=== PATIENT | female | born 1990 | race African-American/Black ===

== ENCOUNTER 2017-01-13 07:33 | Emergency (ER) | payer OTHER ==
[2017-01-13 07:39] VITALS: BP 124/89
[2017-01-13] MEDS ORDERED: DEXAMETHASONE 10 MG/ML VIAL PO STA (07:48)
[2017-01-13] MEDS ORDERED: DEXAMETHASONE 10 MG/ML VIAL ONE (07:50)
[2017-01-13] MEDS ORDERED: CHERRY SYRUP 10 ML UDC PO ONE (07:50)
--- NOTE | 2017-01-13 07:52 | ED Physician Documentation ---
PD HPI HEENT - Stated complaint Stated Complaint: FACE SWOLLEN/FEVER - Chief complaint Chief Complaint: General - History obtained from History obtained from: Patient, Family - History of Present Illness Timing - onset: How many weeks ago (1) Timing - duration: Weeks (1) Timing - details: Abrupt onset, Still present Location: Sinuses, Nose, Throat Improves: Medication Associated symptoms: Congestion, Rhinorrhea, Facial swelling, Cough. No: Fever Similar symptoms before: Diagnosis (allergic rhinitis) Recently seen: Not recently seen - Additional information Additional information: 26 y/o female returned from [place] one week ago and developed seasonal allergic rhinitis symptoms when she arrived back here. She started some flonase and jadyn and this helped with the itchy watery eyes but now she has pressure and drainage from the left maxillary sinus and drainage and swelling of the left conjunctiva. Review of Systems Constitutional: denies: Fever Eyes: denies: Decreased vision Ears: denies: Ear pain Nose: reports: Rhinorrhea / runny nose, Congestion, Sinus pressure / pain Throat: reports: Sore throat Cardiac: denies: Chest pain / pressure, Palpitations Respiratory: reports: Cough. denies: Dyspnea GI: denies: Vomiting Skin: denies: Rash Musculoskeletal: denies: Neck pain, Back pain, Extremity pain Neurologic: denies: Generalized weakness, Focal weakness, Numbness PD PAST MEDICAL HISTORY - Past Medical History Past Medical History: No - Past Surgical History Past Surgical History: No - Present Medications Home Medications: Ambulatory Orders Medication Instructions Recorded Confirmed Azithromycin [Zithromax] 250 mg PO DAILY #6 tablet 01/13/17 - Allergies Allergies/Adverse Reactions: Allergies Allergy/AdvReac Type Severity Reaction Status Date / Time No Known Drug Allergies Allergy Verified 01/13/17 07:38 - Social History Does the pt smoke?: No Smoking Status: Never smoker Does the pt drink ETOH?: No Does the pt have substance abuse?: No - Immunizations Immunizations are current?: Yes - POLST Patient has POLST: No PD ED PE NORMAL - Vitals Vital signs reviewed: Yes (hypertensive) - General General: Alert and oriented X 3, No acute distress, Well developed/nourished - HEENT HEENT: Atraumatic, PERRL, EOMI, Other (The right TM is clear the left is flush but with retained landmarks. There is point tenderness over the left maxillary sinus and not the right. The pharynx is with mild swelling and erythema. There is mild conjunctival injection on the left as well. ) - Neck Neck: Supple, no meningeal sign, No bony TTP - Cardiac Cardiac: RRR, No murmur - Respiratory Respiratory: No respiratory distress, Clear bilaterally - Abdomen Abdomen: Soft, Non tender - Back Back: No CVA TTP, No spinal TTP - Derm Derm: Normal color, Warm and dry, No rash - Extremities Extremities: No deformity, No edema - Neuro Neuro: No motor deficit, No sensory deficit - Psych Psych: Normal mood, Normal affect Results - Vitals Vitals: Vital Signs - 24 hr 01/13/17 07:37 Temperature 37.1 C Heart Rate 99 Respiratory 18 Rate Blood Pressure 124/89 H O2 Saturation 99 Oxygen O2 Source Room air PD MEDICAL DECISION MAKING - ED course Complexity details: considered differential, d/w patient, d/w family ED course: 26 y/o previously well female with a remote history of seasonal allergic rhinitis has developed allergic symptoms and started treatment and now appears to have a left maxillary sinus infection. She is given a dose of decadron and we will put her on some zithromax. Departure - Departure Disposition: Home, Self Care Clinical Impression: Seasonal allergic rhinitis Qualifiers: Allergic rhinitis trigger: unspecified Qualified Code(s): J30.2 - Other seasonal allergic rhinitis Maxillary sinusitis, acute Qualifiers: Recurrence: non-recurrent Qualified Code(s): J01.00 - Acute maxillary sinusitis , unspecified Otitis media Qualifiers: Otitis media type: suppurative Laterality: left Chronicity: acute Recurrence: not specified as recurrent Spontaneous tympanic membrane rupture: without spontaneous rupture Qualified Code(s): H66.002 - Acute suppurative otitis media without spontaneous rupture of ear drum, left ear Condition: Stable Instructions: ED Sinusitis Abx Tx, ED Otitis Media Acute Adult, ED Allergy Seasonal Follow-Up: [facility] [Provider Group] Prescriptions: Azithromycin [Zithromax] 250 mg PO DAILY #6 tablet
== END 2017-01-13 08:03 | disposition home or self-care (01) ==
LOC: ED 07:33
DX: J30.2 Other seasonal allergic rhinitis (principal); J01.00 Acute maxillary sinusitis, unspecified; H66.002 Acute suppurative otitis media without spontaneous rupture of ear drum, left ear
CPT/HCPCS: 99283; A9270